=== PATIENT | female | born 1995 | race Caucasian/White ===

== ENCOUNTER 2024-04-06 19:53 | Emergency (ER) | payer SELFPAY ==
[2024-04-06 20:04] VITALS: BP 127/87
[2024-04-06] MEDS: PEN VK 500 MG PO (21:26)
--- NOTE | 2024-04-06 21:31 | ED.GENMED ---
History of Present Illness
General
Chief Complaint: Jaw Pain
Source: patient
Exam Limitations: none
Time Seen by Provider: 04/06/24 21:01
Nursing documentation reviewed up to this point in time: agreed with
History of Present Illness
History of Present Illness:
28 yo female with no PMHX presents for right lower jaw pain, radiates to ear, voodoo at times, today lower lip right side and chin feels numb.
Went to [place] 2 days ago, had xrays and told 'there was nothing wrong.' No further treatment given.
Has been taking Ibuprofen q 4 hours and using warm compress with some short term relief. Pain now 8/10, constant slowly worsening, throbbing pain.
Denies ear ache, sore throat, fever, chills, nausea.
Past History
Past History
ED Past Medical History: None
Social History
Tobacco: Non-smoker
Alcohol: Occasional
Personal: Other (Lives with boyfriend)
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
Review of Systems
Review of Systems
Allergies reviewed?: Yes
All Other Systems: ROS reviewed and negative except as documented in HPI and ROS
Constitutional: Denies fever or chills
EENT: Reports mouth pain; Denies sore throat
Respiratory: Denies trouble breathing
ABD/GI: Denies nausea or vomiting
Musculoskeletal: Denies neck pain
Skin: Reports no symptoms
Neurological: Reports no symptoms
Phy Exam
Physical Exam
Physical Exam:
GENERAL: No acute distress. A&Ox3.
CONSTITUTIONAL: Afebrile.
EYES: clear, conjunctivae normal
Neck: No palpable lymphadenopathy
ENMT: moist mucus membranes, Pharynx nl. Tender at angle of jaw. No significant swelling, skin normal color. Tender to palpation along the right lower molars buccal mucosal border no palpable abscess,. Teeth with multiple dental caries. Mild
gingivitis. No trismus TMs normal
RESPIRATORY: Regular respirations, nonlabored, lungs clear.
CARDIOVASCULAR: Regular rate and rhythm, no murmurs, no rubs.
GI: Soft, nontender
MUSCULOSKELETAL: Moves with ease. Well perfused.
SKIN: Warm, dry, pink
PSYCH: Normal mood and affect. Well kept, interactive and appropriate
NEUROLOGIC: Awake, alert and oriented. No focal neurological deficits
Course
Orders/Labs/Results
Orders:
Orders
04/06/24 21:19
Penicillin V Potassium [Pen Vk] 500 mg PO NOW STA
Vital Signs
Initial and Last Documented VS:
Initial Vital Signs
Temp Pulse Resp BP Pulse Ox
98.5 F 77 18 127/87 99
04/06/24 20:04 04/06/24 20:04 04/06/24 20:04 04/06/24 20:04 04/06/24 20:04
Last Documented Vital Signs
Temp Pulse Resp BP Pulse Ox
98.5 F 77 18 127/87 99
04/06/24 20:04 04/06/24 20:04 04/06/24 20:04 04/06/24 20:04 04/06/24 20:04
MDM/Problems Addressed
Differential Diagnosis Includes:
Early dental abscess, tooth infection
MDM/Problems Addressed:
28 yo female with no PMHX presents for right lower jaw pain, radiates to ear, voodoo at times, today lower lip right side and chin feels numb.
Went to [place] 2 days ago, had xrays and told 'there was nothing wrong.' No further treatment given.
Has been taking Ibuprofen q 4 hours and using warm compress with some short term relief. Pain now 8/10, constant slowly worsening, throbbing pain.
Denies ear ache, sore throat, fever, chills, nausea.
Pt is significantly tender to palpation along buccal mucosa and gum at right lower teeth #30 and #31. No palpable abscess. no drainage. Will treat for early dental infection.
Rx for Pen VK sent to her pharmacy.
No insurance, no PCP
Provided list of low cost or free dental clinics
*Critical Care Note
Total Time (30-74mins, 75-104mins- exclusive of procedures): Not Applicable
ED Attending Note
-
Portions of this chart may have been created with voice recognition software.� Occasional wrong word or��sound alike� substitutions may have occurred due to the inherent limitations of voice recognition software.
Discharge Plan
Departure
Patient Disposition: Home (Routine Discharge)
Date of Disposition: 04/06/24
Time of Disposition: 21:19
Patient with high blood pressure during this ER visit?: No
Condition: Good
Discharge Problem:
Pain in lower jaw, Dental infection
Instructions: Dental pain - ED discharge instructions
Prescriptions:
New
penicillin V potassium 250 mg tablet
500 mg PO QID Qty: 40 0RF
Referrals:
Dental, clinic [Other] - Next open appointment
NONE,* [Family Provider] -
Activity Restrictions/Additional Instructions:
As we discussed, you may have a early dental infection. I sent a prescription to your pharmacy for penicillin to take 500 mg 4 times a day for 10 days
Ibuprofen 600 mg (with food) every 6 hours as needed for pain
Use the heating pad since it helped
Call around and see if the Clinics below are still available.
Reduced-Fee Dental Clinics
[facility]: [phone] call for appt. No walk ins
[facility]:
[facility]: [phone]
[facility] [phone]
[facility]: . No walk ins
[facility]: [phone]
[facility]: [phone]
[facility]: 1-
[facility]: [phone]
[facility] [facility]: [phone]
[facility] Sl[facility] scale, Free for uninsured
[facility]: [phone]
[facility] [phone], [place] [address]
[facility]:
[facility]:
Interventions
Interventions:
*Risk Screen - Suicide Last Done: 04/06/24 20:04
*General Assessment Last Done: 04/06/24 20:04
*Neglect/Abuse Screening Last Done: 04/06/24 20:04
ED- Fall Risk Assessment Last Done: 04/06/24 20:38
*ED COVID-19 Vaccine History Last Done: 04/06/24 20:04
*Nursing Disposition Last Done: 04/06/24 21:29
ED-EENT Assessment Last Done: 04/06/24 20:37
ED- Cardiac Assessment Last Done: 04/06/24 20:37
Discharge Date and Time
Discharge Date/Time: 04/06/24 21:29
Print Language: SLOVAK
== END 2024-04-06 21:29 | disposition home or self-care (01) ==
LOC: EMR 19:53
PROVIDERS: EMERGENCY PHYSICIAN Emergency Medicine
DX: K04.7 Periapical abscess without sinus (principal); R68.84 Jaw pain; R20.0 Anesthesia of skin; K02.9 Dental caries, unspecified; K05.00 Acute gingivitis, plaque induced; Z59.71 Insufficient health insurance coverage
CPT/HCPCS: 99283